=== PATIENT | male | born 1945 | race Caucasian/White ===

== ENCOUNTER → 2017-03-28 | Outpatient (CLI) | payer BC, MEDICARE ==
[~2017-03-28] MED LIST: ASP81CT PO; CHOLESTROL MED; ERGO400C PO; OMG1KC PO; VASOTEC
--- NOTE | 2017-03-28 08:36 | Diagnostic Imaging Report ---
PROCEDURE: MRI pelvis without contrast. TECHNIQUE: Multiplanar, multisequence MRI of the pelvis was performed without contrast. INDICATION: Acute right lumbar and pelvic pain. There is heterogeneous bone marrow seen within the lumbar spine and sacrum which may be related to reconversion to hematopoiesis. There is no focal area of marrow edema or hemorrhage to indicate fracture. In particular, there is no evidence of abnormality along either iliac crest. No free fluid is seen in the pelvis. There is no evidence of iliac fossa fluid collection or hematoma. No pathologic adenopathy is seen. There is no evidence of muscular signal abnormality. IMPRESSION: No acute pelvic abnormality is identified. Heterogeneous bone marrow signal may be related to reactivated hematopoietic marrow. There is moderate degenerative disc and facet disease at the L4-L5 and L5-S1 levels which is incompletely evaluated on the pelvic MRI exam. Dictated by: Dictated on workstation # [id number]
== END ==
LOC: RAD 07:15
PROVIDERS: ATTEND Family Medicine
DX: M47.817 Spondylosis without myelopathy or radiculopathy, lumbosacral region (principal)
CPT/HCPCS: 72195

== ENCOUNTER → 2018-10-30 | Outpatient (CLI) | payer MEDICARE, OTHER ==
[~2018-10-30] VITALS: Ht 172.7 cm; Wt 77.6 kg
[~2018-10-30] MED LIST changes: +CATHETER FLUSH 10 ML SYR IV PRN
[2018-10-30 09:42] VITALS: BP 168/74
--- NOTE | 2018-10-30 16:19 | STRESS TEST ---
DATE OF SERVICE: 10/30/2018 [facility] MYOVIEW STRESS TEST REPORT REFERRING PHYSICIAN: Dr. Garcia. Baseline heart rate is 59, baseline blood pressure 150/84. Baseline EKG is sinus rhythm with no ischemic changes. In summary, the patient was injected with 10.81 mCi of technetium-99 Myoview and the resting images were obtained. Then, the patient started exercising with a baseline heart rate, blood pressure and EKG mentioned above. During exercise, the patient had [address] depression in leads II, III, aVF, V4 and V5. Blood pressure was 217/72. During recovery, heart rate and blood pressure returned to baseline. EKG returned to baseline. The resting and stress images were reviewed and compared in the short axis, horizontal long axis, and vertical long axis views. Review of the images showed diaphragmatic attenuation with no significant ischemia or infarction. SSS is 1, SDS 1, TID value 1.05. On the gated images, the left ventricle appeared to be normal size with normal contractility. Calculated ejection fraction 63%. CONCLUSION: 1. Fair exercise tolerance, a total of 7 minutes 15 seconds on standard Isiah protocol, total of 8.7 METS achieving 95% of maximum expected heart rate. 2. Severe hypertensive response to exercise with peak blood pressure 217/72 returned to baseline during recovery. 3. EKG changes are nondiagnostic with exercise returned to baseline during recovery. 4. Diaphragmatic attenuation with no significant ischemia or infarction on SPECT images. 5. Normal left ventricular size with normal contractility. Calculated ejection fraction 63%. Job ID: [id number] DocumentID: [id number] Dictated Date: 10/30/2018 16:01:37 Loop Tacker Date: 10/30/2018 16:18:52 Dictated By: JESUS MANUEL RAMOS MD
== END ==
LOC: CARD 07:50
PROVIDERS: ATTEND Physician Assistant
DX: I34.0 Nonrheumatic mitral (valve) insufficiency (principal); I25.10 Atherosclerotic heart disease of native coronary artery without angina pectoris; I10 Essential (primary) hypertension; E78.5 Hyperlipidemia, unspecified; Z82.49 Family history of ischemic heart disease and other diseases of the circulatory system
CPT/HCPCS: 78452; 93017; 93306

== ENCOUNTER → 2022-08-30 | Outpatient (CLI) | payer MEDICARE, OTHER ==
[~2022-08-30] MED LIST changes: -CATHETER FLUSH 10 ML SYR IV PRN; +HOLD METFORMIN - RECEIVED CONTRAST 20 ML VIAL IV SCH; +IOHEXOL 350 MG/ML 100 ML (OMNIPAQUE 350) VIAL IV ONE; +NS 100 ML (IVPB) BAG IV ONE
[2022-08-30 09:51] LABS: CREATININE SERUM 1.09 MG/DL (0.60-1.30)
--- NOTE | 2022-08-30 10:44 | Diagnostic Imaging Report ---
PROCEDURE: CT angiography of the abdomen and chest with and without contrast. TECHNIQUE: After intravenous administration of contrast, thin section axial CT angiography of the abdomen and chest were obtained. 3D MIP reformats were provided. Auto Exposure Controls were utilized during the CT exam to meet ALARA standards for radiation dose reduction. INDICATION: Hypertension. Occasional chest pain. Concern for aortic aneurysm. COMPARISON: None. CTA chest: There is ectasia of the ascending thoracic aorta measuring 3.7 cm in max diameter. No evidence of dissection. The descending thoracic aorta is normal in size measuring 2.2 cm. The heart size is prominent. No pericardial effusion is present. There is no mediastinal, hilar, or axillary lymphadenopathy. The lungs demonstrate no pulmonary nodules or masses. Dependent atelectasis is seen. There are no focal areas of consolidation. No pneumothoraces are present. No central endobronchial obstructing lesions are identified. There are no pleural effusions. No acute osseous abnormalities. CTA abdomen: No aneurysm or dissection in the abdominal aorta. There is a small amount of atherosclerotic plaque in the abdominal aorta. The celiac trunk, SMA, SALONI, and renal arteries are patent. The liver, spleen, pancreas, adrenal glands, and kidneys have a normal appearance. Gallstone is seen within the gallbladder lumen. No CT evidence of acute cholecystitis. There is no pathologically enlarged mesenteric or retroperitoneal adenopathy. The included bowel loops are nondilated. The appendix is visualized in the right lower quadrant and has a normal appearance. There is no free fluid or free air. No acute osseous abnormalities. IMPRESSION: 1. 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 No evidence of dissection. 2. Cardiomegaly. 3. Cholelithiasis without CT evidence of acute cholecystitis. Dictated by: Dictated on workstation # [id number]
== END ==
LOC: RAD 09:17
PROVIDERS: ATTEND Physician Assistant
DX: I11.9 Hypertensive heart disease without heart failure (principal); K80.20 Calculus of gallbladder without cholecystitis without obstruction; I77.810 Thoracic aortic ectasia
CPT/HCPCS: 36415; 71275; 74175; 82565; 84520

== ENCOUNTER → 2022-10-25 | Outpatient (CLI) | payer MEDICARE, OTHER ==
[~2022-10-25] MED LIST changes: +CATHETER FLUSH 10 ML SYR IVP PRN; -HOLD METFORMIN - RECEIVED CONTRAST 20 ML VIAL IV SCH; -IOHEXOL 350 MG/ML 100 ML (OMNIPAQUE 350) VIAL IV ONE; -NS 100 ML (IVPB) BAG IV ONE
[2022-10-25 09:14] VITALS: BP 142/70
--- NOTE | 2022-10-25 10:57 | Cardiology Stress Test Report ---
Stress Test Report Date of Procedure/Referring: Date of Procedure: Oct 25, 2022 PCP Tiana Escobar MD Admitting Physician Admitting Physician: Attending Physician: Navin Turner MD Indications: HTN Baseline Heart Rate: 56 Baseline Blood Pressure: Blood Pressure Systolic: 142 Blood Pressure Diastolic: 70 Vital Signs Date Time Temp Pulse Resp B/P (MAP) Pulse Ox O2 Delivery O2 Flow Rate FiO2 10/25/22 09:14 53 142/70 (94) 97 Baseline Vital Signs Vital Signs Date Time Temp Pulse Resp B/P (MAP) Pulse Ox O2 Delivery O2 Flow Rate FiO2 10/25/22 09:14 53 142/70 (94) 97 Baseline EKG: Baseline EKG: NSR Summary: After explaining the procedure and details to the patient, he signed the consent and was brought to the stress nuclear laboratory. Patient exercised on standard Isiah protocol, EKG, heart rate and blood pressure were monitored continuously, resting and stress doses of radio tracer were injected, imaging was acquired and reviewed in the short axis, horizontal long axis and vertical long axis views Patient was able to exercise for a total of 7 minutes on Isiah protocol, METs 8.5 Maximum heart rate 147 Maximum blood pressure 215/64 Stress EKG, Minimal nondiagnostic changes Recovery EKG, Return to baseline TID: 1.06 SSS: 8 SDS: 5 EF: 66 Conclusion: Fair exercise tolerance for 7 minutes on standard Isiah protocol, 8.5 METS achieving 100% of maximal expected heart rate Appropriate heart rate response to exercise with hypertensive response to e xercise with peak blood pressure 215/64 return to baseline during recovery Occasional PVCs and ventricular couplet noted at peak exercise level resolved in recovery Reversible ischemia involving the mid to apical Anterior wall and apex Normal left ventricular size, ejection fraction 66% Copy Copies To 1: TIANA ESCOBAR MD, BASHAR J MD Oct 25, 2022 10:57
== END ==
LOC: CARD 07:52
PROVIDERS: ATTEND Internal Medicine Cardiovascular Disease
DX: I25.89 Other forms of chronic ischemic heart disease (principal); I10 Essential (primary) hypertension
CPT/HCPCS: 78452; 93017; A9502

== ENCOUNTER 2022-11-08 06:42 | Day surgery (SDC) | payer MEDICARE, OTHER ==
[2022-11-08] VITALS (8 sets, daily range): BP systolic 109–150; BP diastolic 64–76
[~2022-11-08] VITALS: Ht 172.7 cm; Wt 77.2 kg
[~2022-11-08 06:42] MED LIST changes: -CATHETER FLUSH 10 ML SYR IVP PRN
[2022-11-08] MEDS ORDERED: LIDOCAINE 1% INJ 20 ML VIAL ONE (06:54)
[2022-11-08] MEDS ORDERED: HEParin (CATH LAB) 2,000 ML IV ONE (06:54)
[2022-11-08] MEDS ORDERED: NS IV 1000 ML 1,000 ML ONE (06:54)
[2022-11-08] MEDS ORDERED: NS IV 1000 ML 1,000 ML IV SCH ×2 (07:00→09:00)
[2022-11-08 07:17] LABS: HEMATOCRIT 39 % (40-54); HEMOGLOBIN 13.2 g/dL (13.3-17.7); MEAN CORPUSCULAR HEMOGLOBIN 32 pg (25-34); MEAN CORPUSCULAR HGB CONC 34 g/dL (32-36); MEAN CORPUSCULAR VOLUME 93 fL (80-99); MEAN PLATELET VOLUME 9.4 fL (9.0-12.2); PLATELET COUNT 221 10^3/uL (130-400); WHITE BLOOD COUNT 4.4 10^3/uL (4.3-11.0)
[2022-11-08 07:25] LABS: CLARITY,URINE CLEAR; COLOR,URINE YELLOW
[2022-11-08] MEDS ORDERED: NITRO DRIP 25000 MCG/D5W 250 ML IV ONE (07:25)
[2022-11-08] MEDS ORDERED: VERAPAMIL 5 MG/2 ML (CALAN) VIAL IV ONE (07:25)
[2022-11-08] MEDS ORDERED: fentaNYL INJECTION 100 MCG/2 ML VIAL ONE (07:25)
[2022-11-08] MEDS ORDERED: MIDAZOLAM INJ 5 MG/5 ML VIAL ONE (07:25)
[2022-11-08] MEDS ORDERED: HEParin 1000 UNIT/ML (10ML VIAL) FOR BOLUS ONE (07:25)
[2022-11-08 07:26] LABS: BACTERIA,URINE NEGATIVE /HPF; BILIRUBIN,URINE 1+ (NEGATIVE); GLUCOSE, URINE (UA) TRACE (NEGATIVE); KETONES,URINE NEGATIVE (NEGATIVE); LEUKOCYTE ESTERASE ,URINE NEGATIVE (NEGATIVE); NITRITE,URINE NEGATIVE (NEGATIVE); PH,URINE 5.5 (5-9); PROTEIN,URINE 1+ (NEGATIVE); WBC,URINE RARE /HPF
--- NOTE | 2022-11-08 07:27 | Diagnostic Imaging Report ---
INDICATION: Pre-heart catheterization with abnormal stress test TECHNIQUE: Single view chest 7:11 AM CORRELATION STUDY: None FINDINGS: The heart size, mediastinal configuration and pulmonary vascularity are within normal limits. The lungs are clear with no consolidating infiltrate. There is no significant effusion or pneumothorax. IMPRESSION: 1. Negative appearing single view chest. Dictated by: Dictated on workstation # [id number]
[2022-11-08 07:28] LABS: INR 0.9 (0.8-1.4); PROTHROMBIN TIME PATIENT 12.7 SEC (12.2-14.7)
[2022-11-08 07:35] LABS: ALBUMIN 4.2 GM/DL (3.2-4.5); BILIRUBIN,TOTAL 0.9 MG/DL (0.1-1.0); CREATININE SERUM 1.08 MG/DL (0.60-1.30); POTASSIUM 3.9 MMOL/L (3.6-5.0); TOTAL PROTEIN 6.7 GM/DL (6.4-8.2)
[2022-11-08] MEDS ORDERED: ATOR20TA66 PO (07:44)
[2022-11-08] MEDS ORDERED: OMEG100032 PO ×2 (07:44)
[2022-11-08] MEDS ORDERED: ACET325T38 PO (07:44)
[2022-11-08] MEDS ORDERED: BRIM5DRO3 OU (07:44)
[2022-11-08] MEDS ORDERED: TIMO5DRO16 OU (07:44)
[2022-11-08] MEDS ORDERED: ASPI-1238 PO (07:44)
[2022-11-08] MEDS ORDERED: NETA2.5D OU (07:44)
[2022-11-08] MEDS ORDERED: LORA10TA76 PO (07:44)
[2022-11-08] MEDS ORDERED: LATA2.5D19 OU (07:44)
[2022-11-08] MEDS ORDERED: LOSA100T58 PO (07:44)
[2022-11-08] MEDS ORDERED: CHOL200052 PO (07:44)
--- NOTE | 2022-11-08 08:16 | Cardiac Procedure Note-CS/ASA ---
Pre-Procedure Note Pre-Op Procedure Note Date of Available H&P: Oct 26, 2022 Date H&P Reviewed: Nov 08, 2022 Time H&P Reviewed: 08:15 History & Physical: H&P Reviewed, Patient Examed, No changes noted Pre-Operative Diagnosis: CAD Moderate Sedation PreProcedure Time 08:15 ASA Score 3 Airway Lungs Heart ASA score ASA 1: a normal healthy patient ASA 2: a patient with a mild systemic disease (mid diabetes, controlled hypertension, obesity ASA 3: a patient with a severe systemic disease that limits activity (angina, COPD, prior Myocardial infarction) ASA 4: a patient with an incapacitating disease that is a constant threat to life (CHF, renal failure) ASA 5: a moribund patient not expected to survive 24 hrs. (ruptured aneurysm) ASA 6: a declared brain- patient whose organs are being harvested. For emergent operations, add the letter E after the classification Mallampati Classification Grade 3 Sedation Plan Analgesia, Amnesia, Plan communicated to team members, Discussed options with patient/fam, Discussed risks with patient/fam The patient is an appropriate candidate to undergo the planned procedure, sedation, and anesthesia. The patient immediately re-assessed prior to indication. JESUS MANUEL RAMOS MD Nov 08, 2022 08:16
--- NOTE | 2022-11-08 08:57 | Discharge Inst-Post CATH ---
Discharge Inst-CATH/EP Problems Reviewed?: Yes Post Cardiac Cath/EP D/C Inst Follow Up/Plan Appointment with Dr. Turner's office in 2 to 4 weeks <b>CARDIAC CATH/EP PROCEDURE DISCHARGE INSTRUCTIONS</b> ACTIVITY * Go Home directly and rest. * Limit activity of the leg (or wrist if it was used) for 7 days including aer obics, swimming, jogging, bicycling, etc. * Restrict stair-climbing for 7 days if possible, if not, climb up with your non-cath leg, then bring together on the same step. * Avoid lifting, pushing, pulling or excessive movement of the affected extremi ty for 7 days. * Customary sexual activity may be resumed after 2 days-use caution not to use a position that strains or causes pain to the affected extremity. * No driving for 24 hours. * NO SMOKING. * Avoid straining for bowel movements for 7 days. * Gentle walking on level ground is allowed. * Returning to work will depend on the type of procedure and the results. Your doctor will discuss this with you. CALL YOUR DOCTOR FOR ANY OF THE FOLLOWING: *If bleeding from the puncture site occurs- Apply gentle pressure to site with clean cloth and call your doctor or EMS. * If a knot or lump forms under the skin, increases in size, or causes pain. * If bruising appears to be worsening or moving further down your leg instead of disappearing. * Temperature above 101 F. CARE OF YOUR GROIN INCISION; * Bruising or purple discoloration of the skin near the puncture site is common. * You may shower only, no bathtub bathing for 5 days. Be careful to avoid slipping as your leg may feel stiff. * If a closure device was used on your femoral artery, please see the attached guide regarding care of the device and your leg. * Leave dressing on FOR 24 hours. CARE OF YOUR WRIST INCISION; * Bruising or purple discoloration of the skin near the puncture site is common. * You may shower. * DO NOT submerge wrist. * Leave dressing on FOR 24 hours. JESUS MANUEL TURNER MD Nov 08, 2022 08:57
--- NOTE | 2022-11-08 09:00 | Cardiac Cath Report ---
Cardiac Cath Report Physician (s)/Open Soaper Tender (s) Physician JESUS MANUEL RAMOS MD Pre-Procedure Diagnosis Pre-Procedure Diagnosis: CAD Post-Procedure Note Procedure Start Date: Nov 08, 2022 Name of Procedure: Left heart catheterization Findings/Procedure Note PROCEDURE NOTE: 77-year-old gentleman with history of hypertension, hyperlipidemia, had an abnormal stress test, scheduled for cardiac catheterization possible PTCA. After explaining the procedure to the patient, all pros and cons were explained, all questions were answered. The patient signed the consent and then he was placed in the cardiac catheterization laboratory. Groin was prepped in SL fashion local anesthesia was used. Sheath placed in the right radial artery, Industry catheter was advanced to the left ventricular cavity, pressure was me asured, pullback LV to aorta was done, engage the right and left coronary system, angiogram was done. At the end of the procedure the sheath was removed. Vascular band was used FINDINGS: Hemodynamics LV 112/13, end-diastolic pressure of 13 Aorta 119/61 mean of 84 ANATOMY: Left Main is free of obstructive disease Left Anterior Descending is calcified proximally with 30% stenosis nonobstructive disease Left Circumflex is nondominant artery with no significant obstructive disease Right Coronary Artery is a large dominant artery with 40 to 50% distal stenosis nonobstructive disease LV Gram was not done, pressure was measured CONCLUSION: Calcified proximal LAD with 30% stenosis, nonobstructive disease Dominant right coronary artery with 40 to 50% stenosis distally nonobstructive disease Normal left ventricular end-diastolic pressure DISCUSSION AND RECOMMENDATION: Continue to maximize medical therapy no intervention is recommended Anesthesia Type: Conscious Sedation Estimated blood loss (mL): 10 ml Contrast Amount: 30 ml Total Radiation Dose: 244 mGy Post-Procedure Diagnosis Post-operative diagnosis: Chest pain Coronary artery disease Hypertension Hyperlipidemia JESUS MANUEL RAMOS MD Nov 08, 2022 08:59
== END 2022-11-08 11:00 | disposition home or self-care (01) ==
LOC: CATH 06:42 → SDC 09:16 → CATH 11:00
PROVIDERS: ATTEND Internal Medicine Cardiovascular Disease
DX: I25.10 Atherosclerotic heart disease of native coronary artery without angina pectoris (principal); I10 Essential (primary) hypertension; E78.5 Hyperlipidemia, unspecified; I34.0 Nonrheumatic mitral (valve) insufficiency; E78.2 Mixed hyperlipidemia; I65.23 Occlusion and stenosis of bilateral carotid arteries; Z87.891 Personal history of nicotine dependence; Z79.899 Other long term (current) drug therapy; Z79.82 Long term (current) use of aspirin
CPT/HCPCS: 71045; 80053; 81000; 85027; 85610; 85730; 87081; 93005; 93458; C1894; 36415